=== PATIENT | female | born 1950 | race African-American/Black ===

== ENCOUNTER 2021-06-22 06:08 | Observation (INO) ==
[2021-06-18 11:18] LABS: Basophils # 0.1 10*3/uL (0.0-0.2); Basophils % 0.7 % (0.0-0.8); Eosinophils # 0.3 10*3/uL (0.0-0.87); Eosinophils % 3.5 % (0.00-10.9); Hematocrit 35.7 VOL% (35.7-47.0); Hemoglobin 11.1 GM/DL (12.0-16.0); Immature Granulocytes % 0.3 %; Immature Granulocytes Absolute 0.02 #; Mean Corpuscular HGB Conc 31.1 GM/DL (32-36); Mean Corpuscular Volume 88.6 FL (87-102); Monocytes % 6.8 % (1.7-12.7); Neutrophils % 47.7 % (38.7-73.9); Platelet Count 222 T/CUMM (130-400); Red Blood Count 4.03 MC/CUMM (3.8-5.5); Red Cell Distribution Width 15.9 % (9.3-17.3); White Blood Count 7.4 T/CUMM (4-12)
[2021-06-18 11:28] LABS: Calcium 12.8 MG/DL (8.5-10.1); Osmolality,Calculated 284.7 MOS/KG (273-304); Potassium 4.6 MMOL/L (3.5-5.1)
[~2021-06-22 06:08] MED LIST: DEXAMETHASONE 4 MG/1 ML VIAL ONE; GLYCOPYRROLATE 0.4 MG/2 ML VIAL ONE; LIDOCAINE 2% 5 ML VIAL ONE; ONDANSETRON 4 MG/2 ML VIAL ONE; ROCURONIUM 50 MG/5 ML VIAL IV ONE; SUCCINYLCHOLINE 200 MG/10 ML VIAL ONE; propofoL 200 MG/20 ML VIAL IV ONE
[2021-06-22] MEDS ORDERED: FAMOTIDINE 20 MG TABLET PO ONE (06:20)
[2021-06-22] MEDS ORDERED: FAMOTIDINE 20 MG TABLET ONE (06:21)
[2021-06-22] MEDS ORDERED: LACTATED RINGERS 1,000 ML IV SCH (06:30)
[2021-06-22] MEDS ORDERED: TISSUE ADHESIVE 1 EACH APPLICATOR TOP ONE (06:45)
[2021-06-22] MEDS ORDERED: DEXMEDETOMIDINE 200 MCG/2 ML VIAL ONE (06:45)
[2021-06-22] MEDS ORDERED: BUPIVACAINE MPF 0.25% 30 ML VIAL ONE (06:45)
[2021-06-22] MEDS ORDERED: LIDOCAINE 1%/EPI INJ 20 ML VIAL ONE (06:46)
[2021-06-22] MEDS ORDERED: fentaNYL 100 MCG/2 ML VIAL ONE ×2 (06:46→07:49)
[2021-06-22] MEDS ORDERED: SEVOFLURANE 1 UNIT/15 MINUTE INH ONE ×2 (07:46→08:22)
[2021-06-22] MEDS ORDERED: PHENYLEPHRINE 1 MG/10 ML SYRINGE IV ONE (07:54)
[2021-06-22] MEDS ORDERED: PROMETHAZINE INJ 25 MG in SODIUM CHLORIDE 0.9% 50 ML IV PRN (08:56)
[2021-06-22] MEDS ORDERED: MEPERIDINE 25 MG/1 ML VIAL IV PRN (08:56)
[2021-06-22] MEDS ORDERED: diphenhydrAMINE 50 MG/1 ML VIAL IV PRN (08:56)
[2021-06-22] MEDS ORDERED: ONDANSETRON 4 MG/2 ML VIAL IV PRN ×2 (08:56→10:02)
[2021-06-22] MEDS ORDERED: HYDROmorphone 1 MG/1 ML SYRINGE IV PRN (08:56)
[2021-06-22] MEDS ORDERED: ALBUTEROL/IPRATROPIUM 3 ML NEB RESP TX PRN (10:02)
[2021-06-22] MEDS ORDERED: HYDROmorphone 2 MG/1 ML VIAL IV PRN (10:02)
[2021-06-22] MEDS ORDERED: PHENOL 1.4% THROAT SPRAY 177 ML BOTTLE PO PRN (10:06)
[2021-06-22] MEDS ORDERED: hydrOXYzine HCL 25 MG TABLET PO PRN (10:07)
[2021-06-22] MEDS ORDERED: DEXTROSE 10% 250 ML BAG IV PRN (10:09)
[2021-06-22] MEDS ORDERED: GLUCAGON 1 MG VIAL IM PRN (10:09)
[2021-06-22] MEDS: LACTATED RINGERS 1,000 ML IV SCH ×2 (11:41→21:47)
[2021-06-22] MEDS: CALCIUM CARBONATE CHEW 500 MG TABLET PO SCH ×2 (11:42→21:46)
[2021-06-22] MEDS: INSULIN LISPRO 100 UNIT/ML SUBCUT SCH ×3 (11:42→21:47)
[2021-06-22] MEDS: KETOROLAC 15 MG/1 ML VIAL IV PRN (11:43)
[2021-06-22] MEDS: ceFAZolin 2,000 MG/50 ML DUPLEX IV SCH (16:39)
[2021-06-22] MEDS: DILTIAZEM CD 120 MG CAPSULE PO SCH (21:46)
[2021-06-22] MEDS: LOSARTAN 50 MG TABLET PO SCH (21:46)
[2021-06-22] MEDS: SIMVASTATIN 10 MG TABLET PO SCH (21:46)
[2021-06-23] MEDS: ceFAZolin 2,000 MG/50 ML DUPLEX IV SCH (00:13)
[2021-06-23] MEDS: ACETAMINOPHEN 325 MG TABLET PO PRN (04:59)
[2021-06-23] MEDS: ENOXAPARIN 40 MG/0.4 ML SYRINGE SUBCUT SCH (05:03)
[2021-06-23 06:09] LABS: Basophils % 0.3 % (0.0-0.8); Eosinophils # 0.1 10*3/uL (0.0-0.87); Eosinophils % 0.6 % (0.00-10.9); Hematocrit 31.8 VOL% (35.7-47.0); Hemoglobin 9.9 GM/DL (12.0-16.0); Immature Granulocytes % 0.3 %; Immature Granulocytes Absolute 0.04 #; Lymphocytes # 3.1 10*3/uL (1.4-4.0); Lymphocytes % 26.2 % (21.3-54.2); Mean Corpuscular HGB Conc 31.1 GM/DL (32-36); Mean Corpuscular Volume 85.9 FL (87-102); Mean Platelet Volume 12.6 FL (9.6-12.0); Monocytes % 8.4 % (1.7-12.7); Neutrophils % 64.2 % (38.7-73.9); Platelet Count 178 T/CUMM (130-400); Red Cell Distribution Width 15.6 % (9.3-17.3); White Blood Count 11.9 T/CUMM (4-12)
[2021-06-23 06:24] LABS: Calcium 10.6 MG/DL (8.5-10.1); Osmolality,Calculated 277.7 MOS/KG (273-304); Potassium 3.4 MMOL/L (3.5-5.1)
[2021-06-23] MEDS: INSULIN LISPRO 100 UNIT/ML SUBCUT SCH ×4 (07:26→21:21)
[2021-06-23] MEDS: LOSARTAN 50 MG TABLET PO SCH ×2 (08:30→21:21)
[2021-06-23] MEDS: DILTIAZEM CD 120 MG CAPSULE PO SCH ×2 (08:30→20:53)
[2021-06-23] MEDS: CALCIUM CARBONATE CHEW 500 MG TABLET PO SCH ×2 (08:30→21:21)
[2021-06-23] MEDS: PANTOPRAZOLE 40 MG TABLET PO SCH (08:30)
[2021-06-23] MEDS: LACTATED RINGERS 1,000 ML IV SCH ×2 (08:35→18:02)
[2021-06-23] MEDS: SIMVASTATIN 10 MG TABLET PO SCH (21:21)
[2021-06-24] MEDS: LACTATED RINGERS 1,000 ML IV SCH ×2 (03:26→15:06)
[2021-06-24] MEDS: ACETAMINOPHEN 325 MG TABLET PO PRN (04:34)
[2021-06-24] MEDS: ENOXAPARIN 40 MG/0.4 ML SYRINGE SUBCUT SCH (05:22)
[2021-06-24] MEDS: INSULIN LISPRO 100 UNIT/ML SUBCUT SCH ×4 (07:40→20:46)
[2021-06-24] MEDS: DILTIAZEM CD 120 MG CAPSULE PO SCH ×2 (08:47→20:47)
[2021-06-24] MEDS: PANTOPRAZOLE 40 MG TABLET PO SCH (08:47)
[2021-06-24] MEDS: LOSARTAN 50 MG TABLET PO SCH ×2 (08:47→20:47)
[2021-06-24] MEDS: CALCIUM CARBONATE CHEW 500 MG TABLET PO SCH ×2 (08:47→20:47)
[2021-06-24] MEDS: SIMVASTATIN 10 MG TABLET PO SCH (20:46)
[2021-06-24] MEDS ORDERED: MAGNESIUM HYDROXIDE SUSP 30 ML UDCUP PO ONE (21:29)
[2021-06-25] MEDS: KETOROLAC 15 MG/1 ML VIAL IV PRN (03:48)
[2021-06-25] MEDS: LACTATED RINGERS 1,000 ML IV SCH (03:48)
[2021-06-25] MEDS: ENOXAPARIN 40 MG/0.4 ML SYRINGE SUBCUT SCH (05:18)
[2021-06-25] MEDS: INSULIN LISPRO 100 UNIT/ML SUBCUT SCH ×2 (07:44→11:49)
[2021-06-25] MEDS: DILTIAZEM CD 120 MG CAPSULE PO SCH (08:41)
[2021-06-25] MEDS: CALCIUM CARBONATE CHEW 500 MG TABLET PO SCH (08:42)
[2021-06-25] MEDS: PANTOPRAZOLE 40 MG TABLET PO SCH (08:42)
[2021-06-25] MEDS: LOSARTAN 50 MG TABLET PO SCH (08:42)
[2021-06-25 11:45] VITALS: BP 138/67
== END 2021-06-25 13:45 | disposition home or self-care (01) | DRG 627 ==
LOC: N.OR 06:08 → N.SDSINP 06:09 → N.3E 09:34 → INTOOBSV 10:02
PROVIDERS: ADMIT Surgery; ATTEND Surgery